=== PATIENT | female | born 1995 | race Caucasian/White ===

== ENCOUNTER 2024-03-23 14:21 | Emergency (ER) | payer OTHER ==
--- NOTE | 2024-03-23 14:28 | ED ---
Seizure HPI - General Source: EMS, RN notes reviewed Mode of arrival: EMS Limitations: altered mental status - History of Present Illness MD Complaint: possible seizure <Elba Gray - Last Filed: 03/23/24 14:26> <Joselo Hook - Last Filed: 03/23/24 19:49> - General Chief Complaint: Seizure Stated Complaint: Seizure Time Seen by Provider: 03/23/24 14:23 - History of Present Illness Initial Comments: Quick Note: This is a 28-year-old female who presents to the emergency department for a possible seizure. Patient was getting ready to check into [place], and when she was sitting in her car believes that she may have had a seizure. She was experiencing an aura and then proceeded to blackout for about a minute according to the patient. However, this was not witnessed. She did take a bunch of gabapentin and used heroin before this occurred. (Elba Gray) This is a 28-year-old female who presents to the emergency department complaining of doing heroin and taking 4 gabapentin. Patient states she was going to admit herself and [facility] [facility] but because she was falling asleep she was brought to the emergency department. Patient did have her daughter with her and she stated she was can have the daughter come into the rehabilitation center with her. Patient herself has no complaints she wants no blood draw she does not really want to be here but she states she is going to stick around until her partner come clam picker her daughter. (Joselo Hook) - Related Data Home Medications Medication Instructions Recorded Confirmed Unable To Assess [Unable to Assess] 03/23/24 03/23/24 Allergies Allergy/AdvReac Type Severity Reaction Status Date / Time No Known Allergies Allergy Verified 03/23/24 17:35 Review of Systems ROS Other: All systems not noted in ROS Statement are negative. <Elba Gray - Last Filed: 03/23/24 14:26> ROS Other: All systems not noted in ROS Statement are negative. <Joselo Hook - Last Filed: 03/23/24 19:49> ROS Statement: Those systems with pertinent positive or pertinent negative responses have been documented in the HPI. General Exam <Elba Gray - Last Filed: 03/23/24 14:26> <Joselo Hook - Last Filed: 03/23/24 19:49> - General Exam Comments Initial Comments: Visual Physical Exam Vital signs reviewed General: Hunched over and appears intoxicated Head: Normocephalic, atraumatic Eyes: PERRLA, EOMI ENT: Airway patent Chest: Nonlabored breathing Skin: No visual rash, normal skin tone Neuro: Alert and oriented 3 Musculoskeletal: No gross abnormalities (Elba Gray) GENERAL: Patient is well-developed and well-nourished. Patient is nontoxic and well- hydrated and is in no acute distress. Patient is tired but she is able to answer all questions ENT: Neck is soft and supple. No significant lymphadenopathy is noted. Oropharynx is clear. Moist mucous membranes. Neck has full range of motion without eliciting any pain. EYES: The sclera were anicteric and conjunctiva were pink and moist. Extraocular movements were intact and pupils were equal round and reactive to light. Eyelids were unremarkable. PULMONARY: Unlabored respirations. Good breath sounds bilaterally. No audible rales rhonchi or wheezing was noted. CARDIOVASCULAR: There is a regular rate and rhythm without any murmurs gallops or rubs. ABDOMEN: Soft and nontender with normal bowel sounds. SKIN: Skin is clear with no lesions or rashes and otherwise unremarkable. NEUROLOGIC: Patient is alert and oriented x3. Cranial nerves II through XII are grossly intact. Motor and sensory are also intact. Normal speech, volume and content. Symmetrical smile. MUSCULOSKELETAL: Normal extremities with adequate strength and full range of motion. LYMPHATICS: No significant lymphadenopathy is noted PSYCHIATRIC: Normal psychiatric evaluation. (Joselo Hook) Course Vital Signs 03/23/24 03/23/24 03/23/24 14:37 16:36 17:22 Temperature 97.4 F L Pulse Rate 68 71 67 Respiratory 16 14 Rate Blood Pressure 114/80 O2 Sat by Pulse 100 100 98 Oximetry 03/23/24 18:03 Temperature Pulse Rate 67 Respiratory 14 Rate Blood Pressure O2 Sat by Pulse 99 Oximetry Medical Decision Making <Elba Gray - Last Filed: 03/23/24 14:26> <Joselo Hook - Last Filed: 03/23/24 19:49> - Medical Decision Making I performed the QuickNote portion of this chart. Signed Elba Gray PA-C. (Elba Gray) Was pt. sent in by a medical professional or institution ([facility], [facility], urgent care, hospital, or custodial...) When possible be specific @ -No Did you speak to anyone other than the patient for history (EMS, parent, family, police, friend...)? What history was obtained from this source @ -No Did you review nursing and triage notes (agree or disagree)? Why? @ -I reviewed and agree with nursing and triage notes Were old charts reviewed (outside hosp., previous admission, EMS record, old EKG, old radiological studies, urgent care reports/EKG's, custodial records)? Report findings @ -No old charts were reviewed Differential Diagnosis? @ -Differential Altered Mental Status: Hypoglycemia, DKA, hypercapnia, ETOH, overdose, CO poisoning, trauma, myxedema coma, HTN encephalopathy, infection, encephalitis, psychosis, intercranial hemorrhage, hepatic encephalopathy, meningitis, CVA, this is not meant to be an all-inclusive list EKG interpreted by me (3pts min.). @ -As above X-rays interpreted by me (1pt min.). @ -None done CT interpreted by me (1pt min.). @ -None done U/S interpreted by me (1pt. min.). @ -None done What testing was considered but not performed or refused? (CT, X-rays, U/S, labs)? Why? @ -None What meds were considered but not given or refused? Why? @ -None Did you discuss the management of the patient with other professionals (professionals i.e. [facility], [facility], lab, RT, psych nurse, certified social workers in health care, manhole builder, teacher, payroll officer, hospice case manager)? Give summary @ -CPS worker came and evaluated the patient because the child was found with the mother when she was altered mental secondary to drugs. Was smoking cessation discussed for >3mins.? @ -No Was critical care preformed (if so, how long)? @ -No Were there social determinants of health that impacted care today? How? (Homelessness, low income, unemployed, alcoholism, drug addiction, transportation, low edu. Level, literacy, decrease access to med. care, long term, rehab)? @ -No Was there de-escalation of care discussed even if they declined (Discuss DNR or withdrawal of care, Hospice)? DNR status @ -No What co-morbidities impacted this encounter? (DM, HTN, Smoking, COPD, CAD, Cancer, CVA, ARF, Chemo, Hep., AIDS, mental health diagnosis, sleep apnea, morbid obesity)? @ -None Was patient admitted / discharged? Hospital course, mention meds given and route, prescriptions, significant lab abnormalities, going to OR and other pertinent info. @ -CPS agreed that the child could go home with grandma and mom agreed to this as did grandma. Patient was alert and oriented on discharge she stated she was going to follow-up with rehabilitation center. Undiagnosed new problem with uncertain prognosis? @ -No Drug Therapy requiring intensive monitoring for toxicity (Heparin, Nitro, Insulin, Cardizem)? @ -No Were any procedures done? @ -No Diagnosis/symptom? @ -Accidental opiate overdose Acute, or Chronic, or Acute on Chronic? @ -Default Uncomplicated (without systemic symptoms) or Complicated (systemic symptoms)? @ -Acute, Side effects of treatment? @ -No Exacerbation, Progression, or Severe Exacerbation? @ -No Poses a threat to life or bodily function? How? (Chest pain, [place], [place], pneumonia, PE, COPD, DKA, ARF, appy, cholecystitis, CVA, Diverticulitis, Homicidal, Suicidal, threat to staff... and all critical care pts) @ -Yes this can lead to hypoxia and (Joselo Hook) Disposition <Elba Gray - Last Filed: 03/23/24 14:26> Is patient prescribed a controlled substance at d/c from ED?: No Time of Disposition: 19:49 <Joselo Hook - Last Filed: 03/23/24 19:49> Clinical Impression: Narcotic abuse Disposition: HOME SELF-CARE Condition: Good Referrals: None,Stated [Primary Care Provider] - 1-2 days
[2024-03-23 14:42] VITALS: BP 114/80; TEMP 97.4
[2024-03-23 16:37] VITALS: RESP 14
[2024-03-23 17:23] VITALS: PULSE 67
== END 2024-03-23 19:56 | disposition home or self-care (01) ==
LOC: EC 14:21
DX: F11.10 Opioid abuse, uncomplicated (principal)
CPT/HCPCS: 99284